=== PATIENT | female | born 1950 | race Caucasian/White ===

== ENCOUNTER → 2016-11-24 | Outpatient (CLI) | payer OTHER | LOC: BMCIMAGING 12:55 | PROVIDERS: ATTEND Family Medicine | DX: Z12.31 Encounter for screening mammogram for malignant neoplasm of breast (principal) | CPT/HCPCS: G0202 ==

== ENCOUNTER → 2017-12-30 | Outpatient (CLI) | payer OTHER | LOC: BMCIMAGING 14:50 | PROVIDERS: ATTEND Family Medicine | DX: Z12.31 Encounter for screening mammogram for malignant neoplasm of breast (principal) ==

== ENCOUNTER → 2018-06-27 | Outpatient (CLI) | payer OTHER | LOC: FIMAGING 08:47 | PROVIDERS: ATTEND Family Medicine | DX: M81.0 Age-related osteoporosis without current pathological fracture (principal); Z78.0 Asymptomatic menopausal state; Z98.1 Arthrodesis status; M85.80 Other specified disorders of bone density and structure, unspecified site | CPT/HCPCS: 82607-90 ==